=== PATIENT | male | born 1970 | race Caucasian/White ===

== ENCOUNTER 2018-01-28 09:30 | Outpatient (AMBR) | payer MEDICAID, SELFPAY ==
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
--- NOTE | 2017-12-03 09:30 | PT.ODAYNRPT ---
PT Outpatient Daily Note Date of Service: December 03, 2017 Office Procedures PT Procedures PT Date of Service: 11/29/17 OP PT Eval Mod Complex 30 minutes: Yes
--- NOTE | 2017-12-03 09:41 | PTNOTE_ITS ---
PT Outpatient Daily Note Date of Service: December 03, 2017 OP Daily Note Visit Reasons: Gait instability Outpatient Physical Therapy Treatment Date: 12/03/17 Subjective: I fell down this morning before I came in here. Objective: Pls see FS Assessment: patient were given strengthening ex on BUE/BLE. patient has foot drop on RLE with inversion. will benefit for AFO on the R foot with a lateral stirrup to promote DF and eversion of the R foot. Contacted Web Operations Lead re: AFO and as per Richie they will need an MD order. patient were advised to see MD to request MD order for AFO to prevent foot drop that makes a patient a high fall risk. Plan: To continue POC toward goals. Pain Present Currently: No Length of Time (minutes) of Treatment: 30 Minutes Office Procedures PT Procedures PT Date of Service: 11/29/17 OP PT Eval Mod Complex 30 minutes: Yes
--- NOTE | 2017-12-06 09:19 | PT.ODAYNRPT ---
PT Outpatient Daily Note Date of Service: December 06, 2017 OP Daily Note Visit Reasons: gait instability Outpatient Physical Therapy Treatment Date: 12/06/17 Subjective: no new complaints Objective: pls see FS Assessment: patient were given strengthening ex on BUE/BLE , STS activity and standing ex with 3lbs AW on BLE and weighted bar x 5lbs. no complains of pain. patient will see his PCP today, letter were given to request for an AFO. Plan: to continue POC toward goals Pain Present Currently: No Length of Time (minutes) of Treatment: 30 Minutes Office Procedures PT Procedures PT Date of Service: 11/29/17 OP PT Eval Mod Complex 30 minutes: Yes PT Procedures PT Date of Service: 12/03/17 Therapeutic Exercise 30 minutes: Yes
--- NOTE | 2017-12-13 09:53 | PT.ODAYNRPT ---
PT Outpatient Daily Note Date of Service: December 13, 2017 OP Daily Note Visit Reasons: Gait instability, hx of head trauma Outpatient Physical Therapy Treatment Date: 12/13/17 Subjective: no new complains Objective: pls see FS Assessment: orders received from re: AFO on RLE due to R foot drop which cause a high fall risk for the patient. patient did strengthening ex on BUE/BLE due to ms weakness with gait training focusing on hip flexion and knee flexion during obstacle training. patient will benefit from AFO with DF assist and medial stirrup to prevent foot drop and lateral and medial instability to decrease risk of falls due to patient has multiple hx of falls at home. Plan: to continue POC toward goals. Pain Present Currently: No Length of Time (minutes) of Treatment: 30 Minutes Office Procedures PT Procedures PT Date of Service: 12/13/17 Therapeutic Exercise 30 minutes: Yes PT Procedures PT Date of Service: 11/29/17 OP PT Eval Mod Complex 30 minutes: Yes PT Procedures PT Date of Service: 12/03/17 Therapeutic Exercise 30 minutes: Yes PT Procedures PT Date of Service: 12/06/17 Therapeutic Exercise 30 minutes: Yes
--- NOTE | 2017-12-31 09:59 | PT.ODAYNRPT ---
PT Outpatient Daily Note Date of Service: December 31, 2017 OP Daily Note Visit Reasons: LOW BACK PAIN Outpatient Physical Therapy Treatment Date: 12/31/17 Subjective: no new complaints Objective: pls see FS Assessment: patient were given strengthening ex on BLE, kinesiotaping of the R towards DF and eversion. scifit on level 5 to prmote strengthening ex and improve endurance. Plan: to continue POC toward goals. Pain Present Currently: No Length of Time (minutes) of Treatment: 30 Minutes Office Procedures PT Procedures PT Date of Service: 12/13/17 Therapeutic Exercise 30 minutes: Yes PT Procedures PT Date of Service: 11/29/17 OP PT Eval Mod Complex 30 minutes: Yes PT Procedures PT Date of Service: 12/03/17 Therapeutic Exercise 30 minutes: Yes PT Procedures PT Date of Service: 12/06/17 Therapeutic Exercise 30 minutes: Yes PT Procedures PT Date of Service: 12/31/17 Therapeutic Exercise 30 minutes: Yes
--- NOTE | 2018-01-10 09:44 | PT.ODAYNRPT ---
PT Outpatient Daily Note Date of Service: January 10, 2018 OP Daily Note Visit Reasons: LOW BACK PAIN Outpatient Physical Therapy Treatment Date: 01/10/18 Subjective: NO NEW COMPLAINTS Objective: pls see FS Assessment: patient were given strengthening ex on BLE seated and standing, with kinesiotaping on R foot due to foot drop. contacted [facility] today to follow up with AFO and they said they cannot find his account. Resend the referral today to [facility] in [place]. Plan: To continue POC toward goals Office Procedures PT Procedures PT Date of Service: 12/13/17 Therapeutic Exercise 30 minutes: Yes PT Procedures PT Date of Service: 11/29/17 OP PT Eval Mod Complex 30 minutes: Yes PT Procedures PT Date of Service: 12/03/17 Therapeutic Exercise 30 minutes: Yes PT Procedures PT Date of Service: 12/06/17 Therapeutic Exercise 30 minutes: Yes PT Procedures PT Date of Service: 12/31/17 Therapeutic Exercise 30 minutes: Yes
--- NOTE | 2018-01-10 09:47 | PTNOTE_ITS ---
PT Outpatient Daily Note Date of Service: January 10, 2018 OP Daily Note Visit Reasons: LOW BACK PAIN Outpatient Physical Therapy Treatment Date: 01/10/18 Subjective: NO NEW COMPLAINTS Objective: pls see FS Assessment: patient were given strengthening ex on BLE seated and standing, with kinesiotaping on R foot due to foot drop. contacted [facility] today to follow up with AFO and they said they cannot find his account. Resend the referral today to [facility] in [place]. Plan: To continue POC toward goals Office Procedures PT Procedures PT Date of Service: 12/13/17 Therapeutic Exercise 30 minutes: Yes PT Procedures PT Date of Service: 11/29/17 OP PT Eval Mod Complex 30 minutes: Yes PT Procedures PT Date of Service: 12/03/17 Therapeutic Exercise 30 minutes: Yes PT Procedures PT Date of Service: 12/06/17 Therapeutic Exercise 30 minutes: Yes PT Procedures PT Date of Service: 12/31/17 Therapeutic Exercise 30 minutes: Yes
--- NOTE | 2018-01-17 13:23 | PT.ODAYNRPT ---
PT Outpatient Daily Note Date of Service: January 17, 2018 OP Daily Note Visit Reasons: gait instability Outpatient Physical Therapy Treatment Date: 01/17/18 Subjective: py doing well upon visit. pt did have a question about the ordered brace in which i was not aware so I advised pt to ask his Therapist on the following visit. Objective: see flow sheet. Assessment: pt's RLE kept slipping off the pedal from sci-fit but he was able to get back up each time. noted pt's RLE foot drop and just cued him to stake his time with each step to be able to have a bit more control of it. pt was able to complete all reps and sets of the exercises with seated rest breaks. no signs of fatigue nor SOB. added obstacle training with foam pads in the PB in which he was allowed to hold onto the bars for support. at first pt had trouble with abduction in order to not step onto the other foot as he had to step over the pads. after correcting him then he did much better. pt is pleasant to work with and cooperates well. Plan: continue POC per PT. Office Procedures PT Procedures PT Date of Service: 12/13/17 Therapeutic Exercise 30 minutes: Yes PT Procedures PT Date of Service: 01/10/18 Therapeutic Exercise 30 minutes: Yes PT Procedures PT Date of Service: 11/29/17 OP PT Eval Mod Complex 30 minutes: Yes PT Procedures PT Date of Service: 12/03/17 Therapeutic Exercise 30 minutes: Yes PT Procedures PT Date of Service: 12/06/17 Therapeutic Exercise 30 minutes: Yes PT Procedures PT Date of Service: 12/31/17 Therapeutic Exercise 30 minutes: Yes PT Procedures PT Date of Service: 01/17/18 Therapeutic Exercise 30 minutes: Yes
--- NOTE | 2018-01-24 10:13 | PT.ODAYNRPT ---
PT Outpatient Daily Note Date of Service: January 24, 2018 OP Daily Note Visit Reasons: LOW BACK PAIN Subjective: no new complaints Objective: pls see FS Assessment: patient were given strengthening ex on BLE with 5lbs AW and STS with instructions on UE recruitment for push off. Ff-up with [employer] re: the AFO and they said that they called the patient's sister and sent up an appointment for the patient. Plan: to continue POC toward goals. Pain Present Currently: No Length of Time (minutes) of Treatment: 30 Minutes Office Procedures PT Procedures PT Date of Service: 12/13/17 Therapeutic Exercise 30 minutes: Yes PT Procedures PT Date of Service: 01/10/18 Therapeutic Exercise 30 minutes: Yes PT Procedures PT Date of Service: 11/29/17 OP PT Eval Mod Complex 30 minutes: Yes PT Procedures PT Date of Service: 12/03/17 Therapeutic Exercise 30 minutes: Yes PT Procedures PT Date of Service: 12/06/17 Therapeutic Exercise 30 minutes: Yes PT Procedures PT Date of Service: 12/31/17 Therapeutic Exercise 30 minutes: Yes PT Procedures PT Date of Service: 01/17/18 Therapeutic Exercise 30 minutes: Yes
--- NOTE | 2018-01-28 10:07 | PTNOTE_ITS ---
PT Outpatient Daily Note Date of Service: January 28, 2018 OP Daily Note Pediatric or Adult Patient: Adult PT >13 Visit Reasons: Gait instability Outpatient Physical Therapy Treatment Date: 01/28/18 Subjective: no new complaints Objective: pls see FS Assessment: focused on strengthening ex on BLE with 5lbs AW. patient has a schedule on [facility] [facility] for his AFO fitting. Plan: to continue pOC toward goals Pain Present Currently: No Length of Time (minutes) of Treatment: 30 Minutes Office Procedures PT Procedures PT Date of Service: 12/13/17 Therapeutic Exercise 30 minutes: Yes PT Procedures PT Date of Service: 01/10/18 Therapeutic Exercise 30 minutes: Yes PT Procedures PT Date of Service: 01/28/18 Therapeutic Exercise 30 minutes: Yes PT Procedures PT Date of Service: 11/29/17 OP PT Eval Mod Complex 30 minutes: Yes PT Procedures PT Date of Service: 12/03/17 Therapeutic Exercise 30 minutes: Yes PT Procedures PT Date of Service: 12/06/17 Therapeutic Exercise 30 minutes: Yes PT Procedures PT Date of Service: 12/31/17 Therapeutic Exercise 30 minutes: Yes PT Procedures PT Date of Service: 01/17/18 Therapeutic Exercise 30 minutes: Yes
== END 2018-01-28 10:30 | disposition home or self-care (01) ==
PROVIDERS: PCP Family Medicine; Referring Provider Family Medicine; Visit Provider Family Medicine
DX: I10 Essential (primary) hypertension (principal)
CPT/HCPCS: 97110; 97162

== ENCOUNTER 2024-10-08 13:43 | Emergency (ER) | payer MEDICAID, SELFPAY ==
[2024-10-08 14:19] VITALS: BP 109/72; PULSE 74; RESP 18; TEMP 37; O2SAT 98; BMI 30.1
--- NOTE | 2024-10-08 14:20 | XR_ITS ---
Examination: Wrist, left 3 views Technique: Wrist AP, oblique, lateral 3 views Date and time of exam: October 08, 2024 1421 hours INDICATIONS: Patient fell today with injury to the wrist, wrist pain. FINDINGS: Acute comminuted impacted fracture distal radial metaphysis, partly intra-articular No major offset Nondisplaced fracture ulnar styloid tip Carpal bones are intact IMPRESSION: Acute comminuted impacted intra-articular fracture distal radial metaphysis
--- NOTE | 2024-10-08 14:20 | XR_ITS ---
Examination: CT brain head without contrast. 2-D sagittal coronal reconstructions Date and time of exam:October 08, 2024 1444 hours INDICATIONS: Patient fell today with injury to the head, head pain CTDI: vol (mGy):51.1 DLP: (mGycm):1078 Technique: Multiple CT axial sections of the brain have been obtained, 5 mm slice thickness. Contrast has not been administered. 2-D sagittal, coronal reconstructions have been obtained Low dose protocols were performed. One or more of the following dose reduction techniques were used; automated exposure control, adjustment of the mA and/or KV according to patient size, use of iterative reconstruction technique. Findings: No significant ventricular enlargement. Intra-axial or extra-axial hemorrhage density is not seen. No mass effect or midline shift Basal cisterns are not remarkable. Fourth ventricle is midline. Old appearing blowout fracture left inferior orbital rim Again noted left frontal craniotomy defect with plate and extensive encephalomalacia left frontal lobe, lesser extent right frontal lobe, unchanged compared with December 25, 2017, also right frontal tony hole Impression: No interval acute hemorrhage, mass effect or midline shift
--- NOTE | 2024-10-08 14:20 | XR_ITS ---
Examination: CT cervical spine without contrast 2-D sagittal reconstructions 2-D coronal reconstructions 3-D reconstructions. Exam date and time:October 08, 2024 1444 hours INDICATIONS: Patient fell today with injury to the neck, neck pain CTDI:vol (mGy) 9.02 DLP: (mGycm) 209 Technique: Multiple 2 mm axial sections of the cervical spine have been obtained. The coronal and sagittal reconstructions have been obtained. 3-D reconstructions have been obtained. Low dose protocols were performed. One or more of the following dose reduction techniques were used; automated exposure control, adjustment of the mA and/or KV according to patient size, use of iterative reconstruction technique. Findings: Axial sections demonstrate intact base of the skull. C1 exhibit satisfactory relationship to the odontoid. No acute cervical vertebral body fracture seen. Alignment posterior spinous processes satisfactory. Impression: No acute cervical fracture.
--- NOTE | 2024-10-08 14:20 | XR_ITS ---
Examination: Forearm, left, 2 views. Technique: Forearm, AP, lateral 2 views Date and time of exam: October 08, 2024 1421 hours INDICATIONS: Patient fell today with injury to the forearm, forearm pain. FINDINGS: Acute comminuted impacted fracture distal radial metaphysis Fracture ulnar styloid tip No elbow fracture noted no elbow effusion IMPRESSION: Acute comminuted impacted fracture distal radial metaphysis
[2024-10-08] MEDS: ACETAMINOPHEN w/COD 300-30 TABLET 2 TAB PO (14:52)
[2024-10-08] MEDS: IBUPROFEN TAB 400 MG TABLET 800 MG PO (14:53)
--- NOTE | 2024-10-08 16:48 | PC.CC ---
[facility] was consulted regarding services for patient. ASW met with patient face to face and sister Charisma who is at bedside. ASW introduced self, role, and reason fir visit. Patient received [facility] 10 hours a week but they would like more assistance with the patient specifically now that he fractured his wrist. ASW informed patient and family that a home health referral would be sent for PT and nursing services. Patient and sister are agreeable.
--- NOTE | 2024-10-08 16:49 | EDNOTE_ITS ---
ED Fall Injury RME/HPI General Chief Complaint: Fall Stated Complaint: LEFT WRIST PAIN/SWELLING DUE TO FALL, HIT HEAD Time Seen by Provider: 10/08/24 13:55 Arrival date/time: 10/08/24 13:43 RME / HPI RME / HPI Narrative: This section includes all my notes and documentations, including HPI, PE, and ED course.? Cosmo Frances MD HPI: 53-year-old male here to be evaluated after falling in his home a few hours ago. He had a mechanical fall, stumbled over his wheelchair. He didn't due to syncope or near syncope. He landed on the back of his head. No loss of consciousness. No headache or dizziness. He reports severe pain in the left wrist area. No neck pain or back pain. No chest pain or abdominal pain. No pain in other limbs. No other complaints. ROS: All negative except as documented in HPI. Physical Exam: General:? Alert and oriented.? No acute distress when remaining still.?? Eyes:? Conjunctivae and lids clear.? ENT:? No signs of head trauma. Neck:? Supple.? No tenderness. Heart:? RRR.? Lungs:? No respiratory distress.? Good air movement.? No rhonchi, wheezing, rales.?? Chest: No tenderness. Abdomen:? Soft and nontender.?? Skin:? Warm and dry.?? Neuro:? Alert and oriented X 3.??Cranial nerves II to XII grossly normal. No peripheral motor deficits. Musculoskeletal: Remarkable for left wrist and left forearm tenderness. All other major joints and bones are not tender with no limited range of motion. I reviewed all diagnostic test results. My review of the head CT report is no acute findings. My review of the cervical spine CT report is no acute fracture. My interpretation of the left wrist and left forearm x-rays is distal radial fracture. At this point, diagnoses include?fracture of left wrist Treatment here included?ibuprofen and two Tylenol #3 and sugar-tong splint and arm sling. He felt much better. I discussed the case with our orthopedic surgeons (Dr. Julian and Dr. Meier).? About the presentation and exam and diagnostics and treatments here.? And possible need of further care in the hospital.? Recommend outpatient surgery. Based on my best medical judgment, made decision no further evaluation or treatment indicated at this time.? Patient understands and agrees to the discharge instructions customized and printed, see below. Discharge Instructions from Dr. Frances printed for you: 1. Unfortunately, you fractured your left wrist. 2. Until cleared by a doctor taking care of you, keep the splint clean and dry and intact and wear the arm sling. 3. Elevate above the heart level for 3 days is much as possible. 4. Ibuprofen 800 mg every 6-8 hours today and tomorrow to decrease inflammation then as needed. 5. Tylenol codeine for pain. 6. Our ED Laborer [employer] initiated home health care for you, follow all her instructions. 7. You are scheduled to see our orthopedic surgeon (Dr. Meier, see below for address and phone number) at 2 PM on 10/13/24 for further care, including surgery. Hardeep Velasco MD [address] [place] [id number] 8. Seek immediate medical care with intolerable pain, not being able to move your fingers, your fingers turning cold and blue, or with any concerns. Because patient needs both hands to stand and ambulate using a walker, we consulted our ED child care supervisor who initiated home health care services. Cosmo Frances MD Related Data Previous Rx's ?Medication ?Instructions ?Recorded acetaminophen 300 mg-codeine 30 mg 2 tab PO TID PRN pain #20 tabs 10/08/24 tablet ibuprofen 800 mg tablet 800 mg PO Q8H PRN pain #30 tabs 10/08/24 Allergies Allergy/AdvReac Type Severity Reaction Status Date / Time No Known Allergies Allergy Verified 10/08/24 13:46 Review of Systems Review of Systems Systems Reviewed: All systems reviewed, normal except as documented Past Medical History Past Medical History ENDOCRINE: Negative Diabetes Mellitus Type 2 Social History SMOKING STATUS: Former smoker ED Exam Narrative Physical exam: As noted in HPI Course Quality Measures none Orders Category Date Time Status Splint / Immobilizer STAT Care 10/08/24 14:53 Active sling [Splint / Immobilizer] STAT Care 10/08/24 14:54 Active Home Health Referral Routine Cons 10/08/24 16:[address] cervical spine wo con Stat Exams 10/08/24 14:[address] head/brain wo con Stat Exams 10/08/24 14:20 Completed XR forearm LT 2V Stat Exams 10/08/24 14:20 Completed XR wrist comp LT min 3V Stat Exams 10/08/24 14:20 Completed ACETAMINOPHEN w/COD 300-30 [Tylenol w/Cod #3] Med 10/08/24 14:19 Discontinued 2 tab PO X1 ONE Ibuprofen Tab [Motrin Tab] Med 10/08/24 14:19 Discontinued 800 mg PO X1 ONE Vital Signs Vital signs: Vital Signs Temperature 98.6 F 10/08/24 14:19 Pulse Rate 74 10/08/24 14:19 Respiratory Rate 18 10/08/24 14:19 Blood Pressure 109/72 10/08/24 14:19 Pulse Oximetry (%) 98 10/08/24 14:19 Oxygen Delivery Method Room Air 10/08/24 14:19 Pulse ox is 98% on room air which is adequate. 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 How is presenting disease/condition affected by chronic disease/condition?: exacerbated by Evaluation data The following diagnostics were reviewed and interpreted by me:: radiology exam(s) Lab and/or radiology exams considered but not ordered:: None Interpretation Summary: Left distal radial fracture Medications / Prescriptions Medications or Prescriptions considered but not ordered:: None Medication administrations:: Medication Administration History Discontinued Medications Acetaminophen/Codeine Phosphate (Acetaminophen W/Cod 300-30 Tablet) 2 tab PO X1 ONE Stop: 10/08/24 14:20 Last Admin: 10/08/24 14:52 Dose: 2 tab Documented By: Ibuprofen (Ibuprofen Tab 400 Mg Tablet) 800 mg PO X1 ONE Stop: 10/08/24 14:20 Last Admin: 10/08/24 14:53 Dose: 800 mg Documented By: Patient was given two Tylenol #3 and ibuprofen 800 mg. Consultations Consultation(s) initiated? (list below): Yes Consultation #1 (Physician, Specialty, Details): I spoke with our ortho Dr. Julian. Discussed patients PMHx, HPI, ED course, exam findings, labs, and radiology results. Advised patient follow up with ortho Dr. Meier on an outpatient basis. Diagnosis Fall Differential Diagnosis: fracture of wrist, concussion with loss of consciousness, concussion without loss of consciousness and other (Neck fracture) Most likely diagnosis given after review of the tests above:: Fracture of left wrist Admission Indicated Admission indicated?: not indicated Explain why admission is indicated or not indicated:: Our orthopedic surgeons recommended outpatient surgery. Admission Request Was there a request for admission?: No Disposition Plan Disposition Plan: Discharge Discharge Attestation Discharge Attestation: The patient and all family members were given an opportunity to ask questions an d understood the discharge instructions. Discharge instructions specifically effects, indications for sooner follow up or return to the emergency department, and the expected course of current diagnosis. Patient condition: Stable Discharge Plan Plan Patient Disposition: HOME (Self Care) Prescriptions/Referrals Prescriptions/Med Rec: New ibuprofen 800 mg tablet 800 mg PO Q8H PRN (Reason: pain) Qty: 30 0RF acetaminophen-codeine 300-30 mg tablet 2 tab PO TID MDD 6 PRN (Reason: pain) Qty: 20 0RF Referrals: Juan Alberto([facility])Jorge NP [Primary Care Provider] - In 1 week Moises Meier MD [Physician] - In 1 week Problem List Clinical Impression: Fracture of left wrist Patient/Caregiver Discharge Instructions Discharge Activity: activity as tolerated Education Materials: ED Fracture, Wrist, General Additional Instructions: Discharge Instructions from Dr. Frances printed for you: 1. Unfortunately, you fractured your left wrist. 2. Until cleared by a doctor taking care of you, keep the splint clean and dry and intact and wear the arm sling. 3. Elevate above the heart level for 3 days is much as possible. 4. Ibuprofen 800 mg every 6-8 hours today and tomorrow to decrease inflammation then as needed. 5. Tylenol codeine for pain. 6. Our ED Laborer [employer] initiated home health care for you, follow all her instructions. 7. You are scheduled to see our orthopedic surgeon (Dr. Meier, see below for address and phone number) at 2 PM on 10/13/24 for further care, including surgery. 8. Seek immediate medical care with intolerable pain, not being able to move your fingers, your fingers turning cold and blue, or with any concerns. Hardeep Velasco MD [address] , [place] [address] Print Language: Tunisian Stand Alone Forms: Maria Teresa Award Info., Patient Portal Info Letter
--- NOTE | 2024-10-08 17:41 | PC.CC ---
ASW sent referral for home health via [employer] for patient. ASW to follow-up when accepting company accepts patient.
== END 2024-10-08 17:34 | disposition home or self-care (01) ==
PROVIDERS: Emergency Provider Emergency Medicine; PCP Nurse Practitioner Family
DX: S52.572A Other intraarticular fracture of lower end of left radius, initial encounter for closed fracture (principal); S19.9XXA Unspecified injury of neck, initial encounter; S09.90XA Unspecified injury of head, initial encounter; W18.09XA Striking against other object with subsequent fall, initial encounter; Y92.009 Unspecified place in unspecified non-institutional (private) residence as the place of occurrence of the external cause
CPT/HCPCS: 29125; 70450; 72125; 73090; 73110; 99284; A4565; A9270

== ENCOUNTER 2024-10-10 06:38 | Inpatient (IN) | payer MEDICAID, SELFPAY ==
[2024-10-10] VITALS (18 sets, daily range): BP systolic 108–133; BP diastolic 69–89; PULSE 63–107; RESP 11–23; TEMP 35.9–36.8; O2SAT 93–100
--- NOTE | 2024-10-10 06:53 | PD.EDHAND ---
Upper Extremity Injury RME/HPI General Chief Complaint: Hand/Wrist Problems Stated Complaint: LEFT WRIST FRACTURE, SEND BY Time Seen by Provider: 10/10/24 06:40 Arrival date/time: 10/10/24 06:38 53-year-old male with history of TBI and seizure disorder currently conserved and here with sister presents emergency department today with complaints of left wrist pain patient was seen 2 days ago diagnosed with wrist fracture patient has a splint in place Limitations: no limitations Related Data Previous Rx's ?Medication ?Instructions ?Recorded acetaminophen 300 mg-codeine 30 mg 2 tab PO TID PRN pain #20 tabs 10/08/24 tablet ibuprofen 800 mg tablet 800 mg PO Q8H PRN pain #30 tabs 10/08/24 Allergies Allergy/AdvReac Type Severity Reaction Status Date / Time No Known Allergies Allergy Verified 10/08/24 13:46 Review of Systems Review of Systems Systems Reviewed: All systems reviewed, normal except as documented Constitutional Constitutional: Reports system reviewed and no additional complaints, except as documented, Denies fever(s) and Denies headache(s) Eyes Eyes: Reports system reviewed and no additional complaints, except as documented and Denies blurry vision ENT Ears, Nose, Mouth, and Throat: Reports system reviewed and no additional complaints, except as documented, Denies headache(s), Denies nasal congestion and Denies nasal discharge Cardiovascular Cardiovascular: Reports system reviewed and no additional complaints, except as documented, Denies chest pain and Denies dyspnea Respiratory Respiratory: Reports system reviewed and no additional complaints, except as documented, Denies chest congestion, Denies cough and Denies dyspnea Gastrointestinal Gastrointestinal: Reports system reviewed and no additional complaints, except as documented and Denies abdominal pain Musculoskeletal Musculoskeletal: Reports system reviewed and no additional complaints, except as documented, Reports arthralgias, Reports deformity, Reports joint swelling, Denies numbness, Reports stiffness and Denies tingling Integumentary/Breasts Skin/Breast: Reports system reviewed and no additional complaints, except as documented and Denies rash Neurologic Neurologic: Reports system reviewed and no additional complaints, except as documented, Reports as per HPI, Denies headache(s), Denies numbness and Denies tingling Past Medical History Past Medical History ENDOCRINE: Negative Diabetes Mellitus Type 2 Social History SMOKING STATUS: Never smoker ED Exam General Limitations: Present no limitations General appearance: Present alert and in no apparent distress Head Head exam: Present atraumatic Eye Eye exam: Present normal appearance, PERRL and EOMI ENT ENT exam: Present normal exam, normal oropharynx and mucous membranes moist Neck Neck exam: Present normal inspection, full ROM and trachea midline Chest Chest inspection: Present normal inspection and symmetric chest wall rise Respiratory Respiratory exam: Present normal lung sounds bilaterally Cardiovascular Cardiovascular exam: Present regular rate, normal rhythm and normal heart sounds Abdominal Exam Abdominal exam: Present soft and normal bowel sounds Extremities Exam Extremities exam: Present normal inspection and full ROM Back Exam Back exam: Present normal inspection and full ROM Neurological Exam Neurological exam: Present alert, oriented X3 and CN II-XII intact Psychiatric Psychiatric exam: Present normal affect and normal mood Skin Skin exam: Present warm, dry, intact and normal color Course Quality Measures none Orders Category Date Time Status COVID-19 Screening Questionnaire NOW Care 10/10/24 06:52 Active Decision to Admit X1 Care 10/10/24 06:52 Active EKG (ED ONLY) *Do not use* NOW Care 10/10/24 07:25 Completed Insert IV NOW Care 10/10/24 06:52 Active Consult to Orthopedic Stat Cons 10/10/24 06:52 Ordered EKG (ED Only) Stat Exams 10/10/24 07:24 Ordered XR chest 1V portable Stat Exams 10/10/24 07:24 Taken XR fluoroscopy up to 1 Hour Routine Exams 10/10/24 10:00 Ordered CBC Stat Lab 10/10/24 07:38 Completed Comprehensive Metabolic Panel Stat Lab 10/10/24 07:38 Completed Partial Thromboplastin Time Stat Lab 10/10/24 07:38 Received Prothrombin Time with INR Stat Lab 10/10/24 07:38 Received Morphine Inj Med 10/10/24 06:51 Discontinued 2 mg IVP X1 ONE Ondansetron Inj [Zofran Inj] Med 10/10/24 06:51 Discontinued 4 mg IV X1 ONE Vital Signs Vital signs: Vital Signs Temperature 98.3 F 10/10/24 06:44 Pulse Rate 88 10/10/24 06:44 Respiratory Rate 20 10/10/24 06:44 Blood Pressure 133/89 H 10/10/24 06:44 Pulse Oximetry (%) 96 10/10/24 06:44 Oxygen Delivery Method Room Air 10/10/24 06:44 o2 sat 96% r/a wnl Procedures -ED EKG Interpretation #1: Date of EK10/10/24 Time of EK:44 Rate: 72 Interpretation: Interpreted by me EKG Impression: Normal sinus rhythm, No acute ST-T changes, No ectopy, No ischemic changes, Normal QRS and Normal intervals Extremity Injury MDM Narrative MDM Narrative:: 53-year-old male with history of TBI and seizure disorder currently conserved and here with sister presents emergency department today with complaints of left wrist pain patient was seen 2 days ago diagnosed with wrist fracture patient has a splint in place Per the sister patient was instructed to come here by Dr. Read's office for surgery today I reviewed the patient's images patient does have significant fracture of the wrist Consultation: I spoke with Dr. Read who states he will take the patient to surgery Patient given pain medications here patient admitted in no distress Patient data External records reviewed:: [facility] previous records Clinical information provided by:: patient Social determinants that could affect healthcare access:: none (TBI) Patient has the following chronic illnesses:: TBI, seizure disorder How is presenting disease/condition affected by chronic disease/condition?: exacerbated by Evaluation data The following diagnostics were reviewed and interpreted by me:: lab results Lab and/or radiology exams considered but not ordered:: Labs obtained Interpretation Summary: Reviewed by me Medications / Prescriptions Medications or Prescriptions considered but not ordered:: Given Medication administrations:: Medication Administration History Discontinued Medications Morphine Sulfate (Morphine Sulf Inj 10 Mg/Ml Vial) 2 mg IVP X1 ONE Stop: 10/10/24 06:52 Last Admin: 10/10/24 08:38 Dose: 2 mg Documented By: Ondansetron HCl (Ondansetron Inj 2 Mg/Ml Inj 2 Ml) 4 mg IV X1 ONE; Protocol Stop: 10/10/24 06:52 Last Admin: 10/10/24 08:38 Dose: 4 mg Documented By: Given Consultations Consultation(s) initiated? (list below): Yes Consultation #1 (Physician, Specialty, Details): Dr Meier Diagnosis Upper Extremity Injury Differential Diagnosis: sprain and strain of wrist, fracture of wrist and other (Fracture of wrist) Most likely diagnosis given after review of the tests above:: Wrist fracture Admission Indicated Admission indicated?: indicated Admission Request Was there a request for admission?: Yes Admission Attestation Admission request attestation: Discussed case with [] from Hospitalist service regarding admission. Discussed patients ED course, exam findings, labs, and radiology results. The Hospitalist [agrees,declines] to accept the patient for admission. Disposition Plan Disposition Plan: Admit Discharge Plan Plan Patient Disposition: Admit Acute Care w/in Hospital Disposition Comment: Stable Prescriptions/Referrals Prescriptions/Med Rec: No Action ibuprofen 800 mg tablet 800 mg PO Q8H PRN (Reason: pain) Qty: 30 0RF acetaminophen-codeine 300-30 mg tablet 2 tab PO TID MDD 6 PRN (Reason: pain) Qty: 20 0RF Referrals: Juan Alberto([facility]),KAMILLE Patel [Primary Care Provider] - In 1 week Problem List Clinical Impression: Fracture of left wrist Patient/Caregiver Discharge Instructions Print Language: Korean Stand Alone Forms: Maria Teresa Award Info., Patient Portal Info Letter PA/[employer] Supervising Physician PA/FRUIT [employer] Supervising Physician: Dr. Frances
--- NOTE | 2024-10-10 07:24 | XR_ITS ---
Examination: AP chest single view Technique one AP portable sitting chest single view Exam date and time: October 10, 2024 0816 hours Comparison December 18, 2009 INDICATIONS: Diagnosis seizure disorder FINDINGS: Normal heart size Suspicious for pneumonia left base obscuring detail medial portion left hemidiaphragm Right lung clear Moderate osteopenia IMPRESSION: Recommend lateral chest view follow-up to exclude pneumonia left base
[2024-10-10 07:50] LABS: Basophils % (Auto) 0 % (0-2.5); Eosinophils # (Auto) 0.1 Thou/mm3 (0.0-0.5); Eosinophils % (Auto) 1 % (0-10); Hematocrit 42.5 % (41.0-53.0); Hemoglobin 14.8 g/dL (13.5-16.0); Immature Granulocytes % (Auto) 0 % (0-0); Immature Granulocytes Auto 0.03 Thou/mm3 (0.00-0.00); Lymphocytes # (Auto) 1.4 Thou/mm3 (1.0-4.8); Lymphocytes % (Auto) 15 % (10-50); Mean Corpuscular HGB Conc 34.8 g/dl (31.0-37.0); Mean Corpuscular Hemoglobin 33.2 pg (25.0-35.0); Mean Corpuscular Volume 95 fL (80-100); Monocytes # (Auto) 0.7 Thou/mm3 (0.0-0.8); Monocytes % (Auto) 7 % (0-12); Neutrophils # (Auto) 7.2 Thou/mm3 (1.8-7.7); Neutrophils % (Auto) 76 % (37-80); Nucleated Red Blood Cell % 0 /100 WBC (0); Platelet Count 294 Thou/mm3 (140-440); RDW Standard Deviation 45.1 fL (35.1-43.9); Red Blood Count 4.46 Miln/mm3 (4.50-5.90); White Blood Count 9.5 Thou/mm3 (3.8-10.6)
[2024-10-10 08:12] LABS: Alanine Aminotransferase 95 U/L (10-49); Albumin, Serum 4.3 gm/dL (3.5-5.0); Albumin/Globulin Ratio 1.7 (1.2-2.2); Alkaline Phosphatase 105 U/L (46-116); Anion Gap 4 (7-16); Aspartate Amino Transferase 52 U/L (0-34); BUN/Creatinine Ratio 14 Ratio (12-20); Bilirubin,Total 0.4 mg/dL (0.3-1.2); Blood Urea Nitrogen 11 mg/dL (9-23); Calcium 9.5 mg/dL (8.3-10.6); Calcium (Corrected) 9.5 mg/dL (8.5-10.1); Carbon Dioxide 30.5 mMol/L (20.0-31.0); Chloride 103 mMol/L (98-107); Creatinine (Component) 0.8 mg/dL (0.6-1.3); Globulin 2.6 gm/dL (2.3-3.5); Glucose 86 mg/dL (74-106); Osmolality,Calculated 272 (275-295); Potassium 4.8 mMol/L (3.4-5.1); Sodium 137 mMol/L (136-145); Total Protein 6.9 gm/dL (5.7-8.2); eGFR > 60 See Note
[2024-10-10] MEDS: MORPHINE SULF INJ 10 MG/ML VIAL 2 MG IVP (08:38)
[2024-10-10] MEDS: ONDANSETRON INJ 2 MG/ML INJ 2 ML 4 MG IV ×2 (08:38→11:28)
[2024-10-10 08:59] LABS: Partial Thromboplastin Time 29.8 Seconds (22.0-36.0); Prothrombin Time 11.3 Seconds (9.0-12.2)
--- NOTE | 2024-10-10 10:00 | XR_ITS ---
Examination: AP lateral left wrist 2 views Fluoroscopy Exam date and time: October 10, 2024 1701 hours INDICATIONS: Acute fractures distal radial metaphysis October 08, 2024, operative reduction internal fixation radius fracture today TECHNIQUE AND FINDINGS: Operative reduction internal fixation fracture distal radial metaphysis with satisfactory alignment Orthopedic hardware satisfactory position Fluoroscopy 50 seconds radiation dose 1.38 milligray 2 spot fluoroscopic wrist films IMPRESSION: Operative reduction internal fixation fracture distal radial metaphysis with satisfactory alignment
[2024-10-10] MEDS: MORPHINE SULF INJ 10 MG/ML VIAL 4 MG IVP (11:28)
--- NOTE | 2024-10-10 12:27 | PC.CC ---
Patient is a 53 year-old who presents to the hospital for left wrist fracture. Arcelia MOE made dege-to-aefn contact with patient. ASW introduced self, role, and reason for visit. Patient appeared alert and oriented to self, location, and situation. Patient was pleasant and engaged in initial assessment. Patient's sister Charisma Marcelino is at bedside and is his [facility] Conservator. Patient lives with his sister, Charisma who provides support to the patient. The patient has an [facility] caregiver who is his nephew Ariel. Patient needs a walker to ambulate; however, his sister reports he has been unstable using the walker and is concerned. Patient needs assistance in completing his ADLs. [facility] with Jorge [facility] Upon discharge patient would like to go to a [facility] facility and sister who has conservatorship is in agreement. administrative services manager to follow-up with any discharge needs.
--- NOTE | 2024-10-10 16:46 | SUR.PHASEI ---
1646: pt received [place] via [facility]. received report from MATTEO Mancia and . pt sleepy at this time. no s/s of resp. distress or discomfort. dressing to left wrist clean, dry and intact. sling arm in place.
--- NOTE | 2024-10-10 16:53 | XR_ITS ---
Examination: Left wrist 2 views Technique one AP lateral left wrist 2 views Exam date and time: October 10, 2024 1703 hours Comparison October 08, 2024 INDICATIONS: Postop comminuted fracture distal radial metaphysis, acute fracture distal radius October 08, 2024 FINDINGS: Postop reduction internal fixation fracture distal radial metaphysis Satisfactory alignment Orthopedic hardware satisfactory position IMPRESSION: Postop reduction internal fixation fracture distal radial metaphysis with satisfactory alignment
--- NOTE | 2024-10-10 17:00 | SUR.PHASEI ---
1700: X-ray staff completed x-ray at this time.
--- NOTE | 2024-10-10 17:06 | PD.SUROPNT ---
Date of Procedure 10/10/24 Pre Op Diagnosis Displaced impacted angulated fracture of the left distal radius Post Op Diagnosis Same Procedure Open reduction internal fixation with 5 hole horizontal and 5 hole vertical interlocking plate. Synthes implant. Findings Refer dictation Procedure Description Patient was given general anesthesia. Once satisfactory anesthesia achieved a tourniquet was placed on left upper arm. Following that part was thoroughly prepped and draped. After using Esmarch the tourniquet pressure was raised to 250 mmHg NS antibiotics was given at the time of anesthesia A skin incision was made from the wrist crease extending proximally for about 3 to 4 inches. Deeper dissection was carried out. A plane was developed between the flexor carpi radialis and brachioradialis muscle. The median nerve was protected on the medial side and radial nerve and artery was protected on the lateral side The pronator quadratus muscle was encountered which was reflected The fracture was manipulated. With the help of Thornton the soft tissue invaginated between the fracture fragment was removed Following that a 5 hole plate was mounted over the volar aspect. Patient was checked under C arm and found to be extremely good. Following that K wire was passed to hold the plate in place. Another drill hole was made to put appropriate side cortical screw on the shaft. At the distal end 2 cortical screws were placed and while tightening volar tilt was maintained. 1 more screw was placed on the vertical limb. Following that 3 interlocking screw was placed on the distal end and repeatedly checked under C arm in both AP and lateral. Following that 2 more locking screw was placed in the proximal end. Wound was irrigated with antibiotic solution every 4 to 5 minutes At the end of the procedure the fracture was very well reduced and volar tilt was maintained Closure was done with the help of 2-0 Vicryl in an interrupted fashion. Skin was closed with marquita To cleaning the wound with hydrogen peroxide solution a sterile dressing was applied. Short arm splint was applied and tourniquet pressure was released Patient tolerated procedure well. Estimated blood loss 5 mL. Rogness in this case is fair. Anesthesia GETA Pathology / specimen None Estimated Blood Loss 5 Surgeon Moises Meier MD Surgical Staff Operation Date: 10/10/24 10:15 Case Staff Anesthesiologist: Saleem Berry RNglass cut off tender: Brooke Patel
--- NOTE | 2024-10-10 17:45 | SUR.PHASEII ---
pt able to open eyes and talk to sister. offered water at this time but refused.
--- NOTE | 2024-10-10 18:08 | SUR.PHASEI ---
1808: sister in the bedside. pt able answer when ask questions.
--- NOTE | 2024-10-10 18:41 | ESHP_ITS ---
RE: CICI RATLIFF : 1970 DATE OF ADMISSION: 10/10/2024 I was contacted by emergency room doctor on 10/10/2024 for Mr. Ratliff. HISTORY OF PRESENT ILLNESS: As per history available, the patient fell down on 10/08/2024 at home. The patient has had a brain injury in the past. The patient uses wheelchair. As per the patient and the family, his leg got entangled in the wheelchair and he fell down. This injury happened on or around 10/08/2024. Subsequent to that, the patient was discharged to home from ER. However, on 10/10/2024, the patient had severe pain and therefore, the patient came again. I saw him in the emergency room and it was needed to do surgical procedure. The patient also has a history of seizures. However, he did not fall down because of the seizures or unconsciousness and it was an accidental fall. PAST MEDICAL HISTORY: The patient has a history of seizures. No history of diabetes mellitus, high blood pressure, asthma. PAST SURGICAL HISTORY: Possible brain surgery. PHYSICAL EXAMINATION: GENERAL: The patient has difficulty in communication. VITAL SIGNS: Pulse 88 per minute, blood pressure 130/76. NECK: Soft, supple. No masses felt. Trachea centrally placed. CARDIOVASCULAR SYSTEM: First second and hearts are normal. No murmur heard. RESPIRATORY SYSTEM: Bilateral vesicular breath sounds. EXTREMITIES: Left wrist examination revealed swelling and deformity. X-ray revealed displaced impacted fracture. ASSESSMENT AND PLAN: The patient and the sister was advised surgical fixation with plate and screws. Detailed discussion took place. Risk of anesthesia was explained and that includes, but not limited to reaction to anesthetic agents, cardiac arrest, rarely it might be fatal. Risk with operation includes infection and if that happens, the patient may need further surgical procedure. Other risks include delayed healing, wound assessment, etc. Sometimes there is a risk of stiffness. No guarantees given regarding functional outcome. Detailed discussion took place. The patient's sister who has power of sports attorney wants to proceed with surgery. Hand surgery is booked for today, which is 10/10/2024. All lab work done. DT: 16:58:03 TT: 18:19:00 Ref: [id number] - TID: [id number]
--- NOTE | 2024-10-10 18:43 | SUR.PHASEII ---
able to drink soda without any issues.
--- NOTE | 2024-10-10 19:09 | SUR.PHASEII ---
MD ordered condom catheter, pt refused. patient stated he can use urinal if needed to urinate. Called , he ordered to cancel the order.
--- NOTE | 2024-10-10 19:35 | PD.ANESPROG ---
Documentation for date of: 10/10/24 ANESTHESIA NOTE: Patient had GETA and L supraclavicular nerve block for L radius ORIF earlier today. Pre-op, I saw him with his sister, who is his conservator. He was alert and calm in bed, NAD, R distal UE in cast. He has h/o TBI c/b L blindness and R reduced vision and gait instability and uses walker and also h/o seizure d/o. He did well intra-op and has been in PACU post op doing well, alert, calm, NAD, VSS, sister at bedside. Saleem Berry MD Anesthesia Progress Note Progress Note Most recent Vital Signs: Last Vital Signs Temp 97.5 F 10/10/24 18:15 Pulse 94 10/10/24 18:45 Resp 23 H 10/10/24 18:45 BP 133/69 H 10/10/24 18:45 Pulse Ox 95 10/10/24 18:45 O2 Del Method Room Air 10/10/24 09:00 O2 Flow Rate 4 10/10/24 17:45
--- NOTE | 2024-10-10 19:37 | SUR.PHASEII ---
report given to MATTEO Jewell at this time.
--- NOTE | 2024-10-10 19:37 | SUR.PHASEII ---
Report given to MATTEO Mendieta at this time.
--- NOTE | 2024-10-10 19:55 | SUR.PHASEII ---
1954: pt transferred to room 372. pt alert and oriented x3. denies any pain or discomfort. no s/s of resp distress or discomfort. dressing to left arm with arm sling clean, dry and intact. circulation, sensation and movement intact. able to wiggle left fingers. cap refill > 2 seconds. tolerated clear liquid diet. sister accompanied patient during transfer. called and informed Dr. Read to update for assigned room to patient.
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
[2024-10-10] MEDS: PHENYTOIN 100 MG CAPSR PO (22:55)
[2024-10-11] VITALS: BP 113/70; PULSE 100; RESP 18; TEMP 36.1; O2SAT 92
[2024-10-11 04:00] VITALS: BP 112/79; PULSE 99; RESP 17; TEMP 36.1; O2SAT 95
[2024-10-11 07:37] VITALS: BP 116/75; PULSE 106; RESP 18; TEMP 36.1; O2SAT 95
[2024-10-11] MEDS: PHENYTOIN 100 MG CAPSR PO ×2 (08:40→20:30)
[2024-10-11] MEDS: HYDROcodone/APAP 5/325 TABLET 1 TAB PO (10:16)
[2024-10-11 10:23] LABS: Basophils % (Auto) 0 % (0-2.5); Eosinophils # (Auto) 0.1 Thou/mm3 (0.0-0.5); Eosinophils % (Auto) 0 % (0-10); Hematocrit 42.3 % (41.0-53.0); Hemoglobin 14.4 g/dL (13.5-16.0); Immature Granulocytes % (Auto) 0 % (0-0); Immature Granulocytes Auto 0.05 Thou/mm3 (0.00-0.00); Lymphocytes # (Auto) 1.6 Thou/mm3 (1.0-4.8); Lymphocytes % (Auto) 12 % (10-50); Mean Corpuscular Hemoglobin 32.4 pg (25.0-35.0); Mean Corpuscular Volume 95 fL (80-100); Monocytes # (Auto) 1.1 Thou/mm3 (0.0-0.8); Monocytes % (Auto) 9 % (0-12); Neutrophils # (Auto) 10.3 Thou/mm3 (1.8-7.7); Neutrophils % (Auto) 79 % (37-80); Nucleated Red Blood Cell % 0 /100 WBC (0); Platelet Count 313 Thou/mm3 (140-440); RDW Standard Deviation 42.8 fL (35.1-43.9); Red Blood Count 4.44 Miln/mm3 (4.50-5.90); White Blood Count 13.1 Thou/mm3 (3.8-10.6)
[2024-10-11 10:38] LABS: Albumin, Serum 4.2 gm/dL (3.5-5.0); Anion Gap 6 (7-16); BUN/Creatinine Ratio 15 Ratio (12-20); Blood Urea Nitrogen 12 mg/dL (9-23); Calcium 9.4 mg/dL (8.3-10.6); Calcium (Corrected) 9.4 mg/dL (8.5-10.1); Carbon Dioxide 28.5 mMol/L (20.0-31.0); Chloride 99 mMol/L (98-107); Creatinine (Component) 0.8 mg/dL (0.6-1.3); Glucose 114 mg/dL (74-106); Osmolality,Calculated 267 (275-295); Phosphorous 2.6 mg/dL (2.4-5.1); Potassium 4.3 mMol/L (3.4-5.1); Sodium 133 mMol/L (136-145); eGFR > 60 See Note
[2024-10-11 12:00] VITALS: BP 116/71; PULSE 94; RESP 18; TEMP 36.2; O2SAT 95
--- NOTE | 2024-10-11 12:38 | PD.RESPRO ---
Documentation for date of: 10/11/24 Subjective Subjective Interval history: Overnight events, labs reviewed. The patient examined this a.m. at bedside. The patient has no active complaints. Seizure precautions in place, he is able to respond, he is complaining of surgical dressing on the left arm in the sling across his collar being too tight, per RN she reached out to orthopedic surgeon and he is okay with it. Exam Vital Signs Temp Pulse Resp BP Pulse Ox O2 Del Method O2 Flow Rate 97.1 F 94 18 116/71 95 Room Air 4 10/11/24 12:00 10/11/24 12:00 10/11/24 12:10/11/24 12:10/11/24 12:10/11/24 12:10/10/24 17:45 Narrative Exam General: AOx3, cooperative. Seizure precautions in place, noted surgical dressing on left upper extremity and sling across her collar. Skin: Intact, no cyanosis or edema noted. Scar on the forehead. HEENT: Atraumatic/normocephalic, JOHN, neck supple Heart: RRR, S1 and S2 without clicks or murmurs Lungs: Clear on auscultation bilaterally, no difficulty breathing Abdomen: Soft, nontender. Bowel sounds present . Vascular: Peripheral pulses palpable Neuro: No focal neurological deficits noted. Noted some tremor on the right hand, patient is able to lift his left hand and wiggle his fingers. Objective Labs 10/11/24 09:39 10/11/24 09:39 Labs: Laboratory Results - last 24 hr 10/11/24 09:39 WBC 13.1 H RBC 4.44 L Hgb 14.4 Hct 42.3 MCV 95 MCH 32.4 MCHC 34.0 RDW Std Deviation 42.8 Plt Count 313 Neut % (Auto) 79 Lymph % (Auto) 12 [place] % (Auto) 9 Eos % (Auto) 0 Baso % (Auto) 0 Neut # (Auto) 10.3 H Lymph # (Auto) 1.6 [place] # (Auto) 1.1 H Eos # (Auto) 0.1 Baso # (Auto) 0.0 Immature Gran # (Auto) 0.05 H Absolute Nucleated RBC 0.00 Immature Gran % 0 Nucleated RBC % 0 Sodium 133 L Potassium 4.3 D Chloride 99 Carbon Dioxide 28.5 Anion Gap 6 L BUN 12 Creatinine 0.8 Estim Creat Clear Calc Not Performed. eGFR > 60 BUN/Creatinine Ratio 15 Glucose 114 H Calculated Osmolality 267 L Calcium 9.4 Corrected Calcium 9.4 Phosphorus 2.6 Albumin 4.2 Quality Measures Quality Measures none Assessment & Plan Assessment Current Active Medications: Generic Name Dose Route Start Last Admin Trade Name Freq PRN Reason Stop Dose Admin Hydrocodone Bitart/Acetaminophen 1 tab 10/10/24 21:13 10/11/24 10:16 Hydrocodone/Apap 5/325 Tablet PO 10/15/24 21:12 1 tab Q6HR PRN Administration PAIN Meclizine HCl 25 mg 10/11/24 00:31 Meclizine Hcl 25 Mg Tablet PO 11/09/24 21:40 QDAY PRN DIZZINESS Phenytoin 100 mg 10/10/24 21:45 10/11/24 08:40 Phenytoin 100 Mg Capsr PO 11/09/24 21:44 100 mg BID RAD Administration Pravastatin Sodium 40 mg 10/11/24 21:00 Pravastatin Sodium 10 Mg Tablet PO 11/10/24 20:59 HS RAD Plan 53-year-old male with past medical history of traumatic brain injury status post cranioplasty, history of seizures, hypercholesterolemia, was admitted due to left wrist fracture status post mechanical fall, needed surgical evaluation, status post ORIF postop day 1. Hospitalist team was consulted for chronic condition management and medication reconciliation. #Left wrist fracture status post ORIF Status post ORIF postop day 1 - Pain management as needed - Ortho is on board recommendations appreciated - PT eval is ordered #Traumatic brain injury - Status post cranioplasty #History of seizure - Reconcile home phenytoin #History of hypercholesterolemia - Reconcile home statin Disposition: Medsurge DVT prophylaxis: SCDs GI prophylaxis: Not indicated Diet: Clear liquid Lines: PIV CODE STATUS: Full code Thank you very much, Dr. Meier for consulting internal medicine team. We are delighted to be a part of [[facility]. Patient care discussed with attending Dr. Calista Ghosh PGY2 Attending Provider Attestation/Addendum I reviewed labs, imaging, EKG, home medications and prior available records. Face to face evaluation was performed by me. I have personally examined the patient and discussed assessment and plan with the IM team. I reviewed the resident note and agree with the plan with exceptions as below. Left wrist fracture status post ORIF History of TBI status post craniotomy Seizure disorder Hyperlipidemia Continue current pain management PT evaluation Continue home phenytoin Seizure precautions
--- NOTE | 2024-10-11 12:41 | PC.SS ---
SS was informed by bedside nurseLucy Dr. is agreeable for pt to go to SNF at dc due to family not able to care for him at home.
--- NOTE | 2024-10-11 12:58 | PC.SS ---
SS met with patient regarding his d/c plan. Pt is alert and understand when using simple words. Pt was admitted for Fracture. Pt states he fall at home. Pt confirmed demographic and contact information is correct on facesheet. Pt resides alone but family resides on the same property. Pt ambulates using 2 wheel walker. Pt is ok with all ADLs. Pt named his sister, Fawn Kimble medical decision maker if he is unable. Patient?s choice is to go to SNF upon d/c. Pt states not diabetic and is not on dialysis. SS also spoke to patient's sister, Charisma who is requesting pt go to SNF and her choice is [facility]. D/C plan: SNF and [facility] is preferred Next of Kin: Charisma Marcelino, sister, phone# [phone] PCP: Dr. Jorge Saucedo at [facility] in [place] Address: Correct on facesheet
[2024-10-11 16:00] VITALS: BP 124/78; PULSE 88; RESP 18; TEMP 36.2; O2SAT 95
[2024-10-11 20:00] VITALS: BP 126/78; PULSE 89; RESP 19; TEMP 36.4; O2SAT 93
[2024-10-11] MEDS: PRAVASTATIN SODIUM 10 MG TABLET 40 MG PO (20:30)
[2024-10-12] VITALS: BP 116/73; PULSE 90; RESP 17; TEMP 37.2; O2SAT 93
[2024-10-12 04:00] VITALS: BP 119/80; PULSE 80; RESP 19; TEMP 37.1; O2SAT 93
[2024-10-12 08:00] VITALS: BP 119/91; PULSE 99; RESP 17; TEMP 36.9; O2SAT 95
[2024-10-12] MEDS: PHENYTOIN 100 MG CAPSR PO ×2 (09:39→20:59)
[2024-10-12 12:00] VITALS: BP 112/83; PULSE 96; RESP 18; TEMP 37; O2SAT 92
--- NOTE | 2024-10-12 15:22 | PD.RESPRO ---
Documentation for date of: 10/12/24 Subjective Subjective Interval history: 10/12: No acute overnight evens. Pt is seen and examined at bedside, pt is complaining of pain in the wrist. no surgical complications. Exam Vital Signs Temp Pulse Resp BP Pulse Ox O2 Del Method O2 Flow Rate 98.6 F 96 18 112/83 92 L Room Air 4 10/12/24 12:00 10/12/24 12:00 10/12/24 12:00 10/12/24 12:00 10/12/24 12:00 10/12/24 12:00 10/10/24 17:45 Narrative Exam General: AOx3, cooperative. Seizure precautions in place, noted surgical dressing on left upper extremity and sling across her collar. Skin: Intact, no cyanosis or edema noted. Scar on the forehead. HEENT: Atraumatic/normocephalic, JOHN, neck supple Heart: RRR, S1 and S2 without clicks or murmurs Lungs: Clear on auscultation bilaterally, no difficulty breathing Abdomen: Soft, nontender. Bowel sounds present . Vascular: Peripheral pulses palpable Neuro: No focal neurological deficits noted. Noted some tremor on the right hand, patient is able to lift his left hand and wiggle his fingers. Objective Labs 10/11/24 09:39 10/11/24 09:39 Quality Measures Quality Measures none Assessment & Plan Assessment Current Active Medications: Generic Name Dose Route Start Last Admin Trade Name Freq PRN Reason Stop Dose Admin Hydrocodone Bitart/Acetaminophen 1 tab 10/10/24 21:13 10/11/24 10:16 Hydrocodone/Apap 5/325 Tablet PO 10/15/24 21:12 1 tab Q6HR PRN Administration PAIN Meclizine HCl 25 mg 10/11/24 00:31 Meclizine Hcl 25 Mg Tablet PO 11/09/24 21:40 QDAY PRN DIZZINESS Phenytoin 100 mg 10/10/24 21:45 10/12/24 09:39 Phenytoin 100 Mg Capsr PO 11/09/24 21:44 100 mg BID RAD Administration Pravastatin Sodium 40 mg 10/11/24 21:00 10/11/24 20:30 Pravastatin Sodium 10 Mg Tablet PO 11/10/24 20:59 40 mg HS RAD Administration Plan 53-year-old male with past medical history of traumatic brain injury status post cranioplasty, history of seizures, hypercholesterolemia, was admitted due to left wrist fracture status post mechanical fall, needed surgical evaluation, status post ORIF postop day 1. Hospitalist team was consulted for chronic condition management and medication reconciliation. #Left wrist fracture status post ORIF Status post ORIF postop day 1 - Pain management as needed - Ortho is on board recommendations appreciated - PT eval is ordered #Traumatic brain injury - Status post cranioplasty #History of seizure - Reconcile home phenytoin #History of hypercholesterolemia - Reconcile home statin Disposition: Medsurge DVT prophylaxis: SCDs GI prophylaxis: Not indicated Diet: Clear liquid Lines: PIV CODE STATUS: Full code Thank you very much, Dr. Meier for consulting internal medicine team. We are delighted to be a part of [[facility]] [facility]. Assessment and plan discussed with my attending physician Dr. Calista Perez (PGY-1)- Internal medicine resident Attending Provider Attestation/Addendum I reviewed labs, imaging, EKG, home medications and prior available records. Face to face evaluation was performed by me. I have personally examined the patient and discussed assessment and plan with the IM team. I reviewed the resident note and agree with the plan with exceptions as below. Left wrist fracture status post ORIF History of TBI status post craniotomy Seizure disorder Hyperlipidemia Continue current pain management PT evaluation Continue home phenytoin Seizure precautions
--- NOTE | 2024-10-12 15:26 | PC.SS ---
SS completed PASRR and provided these to [facility] and [facility] SS uploaded packet via [facility] SS met with pt at bedside using all precautions; discussed SNF placement; pt preference is be here in [place] with [facility] being first choice then [facility]
[2024-10-12 16:00] VITALS: BP 116/77; PULSE 101; RESP 19; TEMP 37.2; O2SAT 92
[2024-10-12 20:00] VITALS: BP 111/79; PULSE 103; RESP 18; TEMP 36.4; O2SAT 95
[2024-10-12] MEDS: PRAVASTATIN SODIUM 10 MG TABLET 40 MG PO (20:59)
[2024-10-13] VITALS: BP 114/80; PULSE 85; RESP 18; TEMP 36.8; O2SAT 94
[2024-10-13 04:00] VITALS: BP 117/84; PULSE 90; RESP 18; TEMP 36.9; O2SAT 93
[2024-10-13 08:00] VITALS: BP 114/79; PULSE 91; RESP 17; TEMP 36.8; O2SAT 95
[2024-10-13] MEDS: PHENYTOIN 100 MG CAPSR PO ×2 (09:09→20:47)
--- NOTE | 2024-10-13 09:38 | PD.RESPRO ---
Documentation for date of: 10/13/24 Subjective Subjective Interval history: 10/12: No acute overnight evens. Pt is seen and examined at bedside, no surgical complications. pt stats he has mild pain and discomfort in this wrist and he using the piano fingers motion to help with it. He would like to watch TV but it appears the TV in his room doesnt work. Pt has no complaints at this time. Hospitalist team will sign off at this time. Exam Vital Signs Temp Pulse Resp BP Pulse Ox O2 Del Method O2 Flow Rate 98.2 F 91 17 114/79 95 Room Air 4 10/13/24 08:00 10/13/24 08:00 10/13/24 08:00 10/13/24 08:00 10/13/24 08:00 10/13/24 08:00 10/10/24 17:45 Narrative Exam General: AOx3, cooperative. Seizure precautions in place, noted surgical dressing on left upper extremity and sling across her collar. Skin: Intact, no cyanosis or edema noted. Scar on the forehead. HEENT: Atraumatic/normocephalic, JOHN, neck supple Heart: RRR, S1 and S2 without clicks or murmurs Lungs: Clear on auscultation bilaterally, no difficulty breathing Abdomen: Soft, nontender. Bowel sounds present . Vascular: Peripheral pulses palpable Neuro: No focal neurological deficits noted. Noted some tremor on the right hand, patient is able to lift his left hand and wiggle his fingers. Objective Labs 10/11/24 09:39 10/11/24 09:39 Quality Measures Quality Measures none Assessment & Plan Assessment Current Active Medications: Generic Name Dose Route Start Last Admin Trade Name Freq PRN Reason Stop Dose Admin Hydrocodone Bitart/Acetaminophen 1 tab 10/10/24 21:13 10/11/24 10:16 Hydrocodone/Apap 5/325 Tablet PO 10/15/24 21:12 1 tab Q6HR PRN Administration PAIN Meclizine HCl 25 mg 10/11/24 00:31 Meclizine Hcl 25 Mg Tablet PO 11/09/24 21:40 QDAY PRN DIZZINESS Phenytoin 100 mg 10/10/24 21:45 10/13/24 09:09 Phenytoin 100 Mg Capsr PO 11/09/24 21:44 100 mg BID RAD Administration Pravastatin Sodium 40 mg 10/11/24 21:00 10/12/24 20:59 Pravastatin Sodium 10 Mg Tablet PO 11/10/24 20:59 40 mg HS RAD Administration Plan 53-year-old male with past medical history of traumatic brain injury status post cranioplasty, history of seizures, hypercholesterolemia, was admitted due to left wrist fracture status post mechanical fall, needed surgical evaluation, status post ORIF postop day 1. Hospitalist team was consulted for chronic condition management and medication reconciliation. #Left wrist fracture status post ORIF Status post ORIF postop day 3 - Pain management as needed - Ortho is on board recommendations appreciated - PT eval is ordered #Traumatic brain injury - Status post cranioplasty #History of seizure - Reconcile home phenytoin #History of hypercholesterolemia - Reconcile home statin Disposition: Medsurge DVT prophylaxis: SCDs GI prophylaxis: Not indicated Diet: Clear liquid Lines: PIV CODE STATUS: Full code Thank you very much, Dr. Meier for consulting internal medicine team. We are delighted to be a part of [[facility]] [facility]. Assessment and plan discussed with my senior year resident physician Dr. Ghosh and my attending physician Dr. Calista Perez (PGY-1)- Internal medicine resident Attending Provider Attestation/Addendum I reviewed labs, imaging, EKG, home medications and prior available records. Face to face evaluation was performed by me. I have personally examined the patient and discussed assessment and plan with the IM team. I reviewed the resident note and agree with the plan with exceptions as below. Left wrist fracture status post ORIF History of TBI status post craniotomy Seizure disorder Hyperlipidemia Continue current pain management PT evaluation: Recommended SNF Continue home phenytoin Seizure precautions
--- NOTE | 2024-10-13 09:51 | PC.SS ---
Addendum entered by Yanely Llanes 10/13/24 12:47: SS spoke to Concepcion Figueroa from [facility] by phone who explained SNF inquiry was given to her DON to review and she is aware family is requesting [facility] Original Note: Follow up note: Pt has been accepted to [facility]. SS attempted to contact [facility] but was only able to leave voicemail for Concepcion Patel informing family is requesting their facility. SS followed up with patient's sister, Charisma who is aware and her 2nd choice is [facility] if [facility] does not respond. Charisma is aware patient's health insurance requires authorization.
[2024-10-13 12:00] VITALS: BP 119/77; PULSE 81; RESP 16; TEMP 36.8; O2SAT 96
--- NOTE | 2024-10-13 15:00 | PC.SS ---
SS followed up with Concepcion Patel at [facility] who is requesting to do an onsite tomorrow and is aware pt is ready for dc. SS has informed patient's sister, Charisma and she is now requesting [facility]. SS has spoken to Leonor from [facility] who will review inquiry again and start insurance authorization. Pt has also been accepted to [facility] (Leonor is aware).
[2024-10-13 16:00] VITALS: BP 121/82; PULSE 87; RESP 16; TEMP 36.7; O2SAT 93
[2024-10-13 16:23] VITALS: BMI 29.2
[2024-10-13 20:00] VITALS: BP 117/78; PULSE 81; RESP 17; TEMP 36.6; O2SAT 93
--- NOTE | 2024-10-13 20:25 | ESPR_ITS ---
RE: CICI RATLIFF : 1970 DATE OF SERVICE: 10/11/2024 The patient was seen by me on 10/11/2024 The patient is status post ORIF of the left distal radius. The patient was admitted due to diffuse traumatic brain injury. The patient is being taken care of by his sister. The sister said that she is unable to take care of him and hence he needs to be transferred to a prison. Accordingly, the information systems planner is informed to proceed with the same. DT: 17:28:13 TT: 20:24:00 Ref: [id number] - TID: [id number]
[2024-10-13] MEDS: PRAVASTATIN SODIUM 10 MG TABLET 40 MG PO (20:47)
--- NOTE | 2024-10-13 21:07 | ESPR_ITS ---
RE: CICI RATLIFF : 1970 DATE OF SERVICE: 10/13/2024 The patient was seen by me again on 10/13/2024. The patient is doing fine. However, the patient is waiting for the placement to a fpc as he has a diffuse traumatic brain injury and the patient's sister is unable to take care of him. So presently, the patient is awaiting for acceptance in the long-term facility. DT: 17:29:00 TT: 21:06:00 Ref: [id number] - TID: [id number]
[2024-10-14] VITALS: BP 112/81; PULSE 88; RESP 17; TEMP 36.8; O2SAT 95
[2024-10-14 04:00] VITALS: BP 116/80; PULSE 79; RESP 17; TEMP 36.8; O2SAT 95
[2024-10-14 08:00] VITALS: BP 109/74; PULSE 74; RESP 18; TEMP 36.3; O2SAT 92
[2024-10-14] MEDS: PHENYTOIN 100 MG CAPSR PO ×2 (08:44→20:32)
[2024-10-14 12:00] VITALS: BP 112/76; PULSE 88; RESP 18; TEMP 36.5; O2SAT 97
--- NOTE | 2024-10-14 12:07 | PC.SS ---
SS followed up with Leonor at [facility] and insurance authorization is still pending.
--- NOTE | 2024-10-14 15:28 | CONPN_ITS ---
Documentation for date of: 10/14/24 Subjective - Hospitalist Subjective Interval history: Patient was seen and examined at the bedside. 24-hour events, labs, imaging studies, and reports reviewed in details. Patient is still pending SNF. outside maintenance worker is working on the case Patient denies new complaints. He was brushing his teeth. He mentioned that his pain is well-managed. He is wondering when he will be discharged. No reported nausea or vomiting. Review of Systems Review of Systems Narrative Review of Systems: Review of systems: 12 point of system reviewed. All negative except as mentioned above. Exam Vital Signs Temp Pulse Resp BP Pulse Ox O2 Del Method O2 Flow Rate 97.7 F 88 18 112/76 97 Room Air 4 10/14/24 12:00 10/14/24 12:00 10/14/24 12:10/14/24 12:10/14/24 12:10/14/24 12:00 10/10/24 17:45 Narrative General: AOx3, cooperative. Seizure precautions in place, noted surgical dressing on left upper extremity and sling across her collar. Skin: Intact, no cyanosis or edema noted. Scar on the forehead. HEENT: Atraumatic/normocephalic, JOHN, neck supple Heart: RRR, S1 and S2 without clicks or murmurs Lungs: Clear on auscultation bilaterally, no difficulty breathing Abdomen: Soft, nontender. Bowel sounds present . Vascular: Peripheral pulses palpable Neuro: No focal neurological deficits noted. Noted some tremor on the right hand, patient is able to lift his left hand and wiggle his fingers. Extremities: No evidence of compartment syndrome on the left upper extremity Objective - Hospitalist Labs Diagram: 10/11/24 09:39 10/11/24 09:39 Assessment & Plan Patient Synopsis 53-year-old male with past medical history of traumatic brain injury status post cranioplasty, history of seizures, hypercholesterolemia, was admitted due to left wrist fracture status post mechanical fall, needed surgical evaluation, status post ORIF. Hospitalist team was consulted for chronic condition management and medication reconciliation. #Left wrist fracture status post ORIF Status post ORIF No evidence of compartment syndrome - Pain management as needed - Ortho is on board recommendations appreciated. Okay to discharge from their standpoint however pending placement. Outpatient follow-up with orthopedic surgery - PT eval is ordered: Recommended SNF. Discussed with adoption social worker who is working on the case # Leukocytosis, mild Likely reactive in the setting of postop versus dehydration. Follow-up CBC #Traumatic brain injury - Status post cranioplasty. No new neurologic deficits #History of seizure -Continued home phenytoin. Seizure precautions #History of hypercholesterolemia -Continue home statin Internal medicine team will sign off. Call for any questions Disposition: Medsurg. Pending SNF placement DVT prophylaxis: SCDs GI prophylaxis: Not indicated Diet: Clear liquid Lines: PIV CODE STATUS: Full code Time Spent with Patient Time: Total time spent is greater than 50% in coordination of care (as documented) at patient's floor/unit and/or counseling patient: Time with patient: 25 - 35 minutes Reason for Continued Stay Reason for continued stay: other Quality Measures Quality Measures none
[2024-10-14 16:00] VITALS: BP 122/76; PULSE 75; RESP 18; TEMP 36.7; O2SAT 92
[2024-10-14 20:00] VITALS: BP 108/74; PULSE 75; RESP 18; TEMP 36.8; O2SAT 94
[2024-10-14] MEDS: PRAVASTATIN SODIUM 10 MG TABLET 40 MG PO (20:32)
[2024-10-15] VITALS: BP 113/76; PULSE 67; RESP 17; TEMP 36.6; O2SAT 96
[2024-10-15 04:00] VITALS: BP 116/82; PULSE 68; RESP 18; TEMP 37.3; O2SAT 97
[2024-10-15 08:00] VITALS: BP 105/80; PULSE 79; RESP 18; TEMP 36.4; O2SAT 95
[2024-10-15] MEDS: PHENYTOIN 100 MG CAPSR PO ×2 (09:19→20:29)
--- NOTE | 2024-10-15 11:19 | PC.SS ---
Addendum entered by Yanely Llanes 10/15/24 16:00: SS followed up with Leonor at [facility], she received updated inquiry and insurance authorization is still pending. Original Note: Follow up note: Physician residents Team B have signed off (they were consulting). SS has sent updated inquiry to [facility] for insurance authorization using [facility]. Per Leonor at [facility], she spoke to her insurance document control coordinator and insurance authorization is still pending.
[2024-10-15 12:00] VITALS: BP 109/76; PULSE 81; RESP 17; TEMP 36.1; O2SAT 95
[2024-10-15 16:00] VITALS: BP 99/88; PULSE 78; RESP 17; TEMP 36.7; O2SAT 94
[2024-10-15 20:00] VITALS: BP 116/68; PULSE 93; RESP 18; TEMP 36.7; O2SAT 97
[2024-10-15] MEDS: PRAVASTATIN SODIUM 10 MG TABLET 40 MG PO (20:29)
[2024-10-16] VITALS: BP 112/71; PULSE 73; RESP 16; TEMP 36.4; O2SAT 96
[2024-10-16 04:00] VITALS: BP 129/87; PULSE 76; RESP 19; TEMP 36.3; O2SAT 93
[2024-10-16 07:47] VITALS: BP 129/87; PULSE 76; RESP 18; TEMP 36.1; O2SAT 95
[2024-10-16] MEDS: PHENYTOIN 100 MG CAPSR PO ×2 (08:38→20:31)
[2024-10-16 11:36] VITALS: BP 129/79; PULSE 90; RESP 20; TEMP 36.2; O2SAT 95
--- NOTE | 2024-10-16 13:38 | PC.SS ---
SS utilized LEILANI to send PT notes from 10/13 to [facility] for auth
--- NOTE | 2024-10-16 14:46 | PC.SS ---
Addendum entered by Celine Daily 10/16/24 16:18: SS follow up note; SS was contacted by Leo Goldman in regards to obtaining auth. SS attempted to contact Dr. Lares and left Voicemail with call back number. Original Note: SS follow up note; SS was contacted by Dr. Dobbins in regards to patient's auth. Dr. Dobbins requested for SS to contact him before noon tomorrow to further discuss authorization and if needed for Dr. Dobbins to speak to Insurance. SS will stand by for further needs.
[2024-10-16 16:00] VITALS: BP 112/80; PULSE 80; RESP 18; TEMP 36.2; O2SAT 92
--- NOTE | 2024-10-16 16:26 | PC.NURSE ---
phone call to Celine Lira says she got authorization for SNF and needs an order for discharge
--- NOTE | 2024-10-16 16:31 | PC.NURSE ---
Dr. Read said the hospitalists may agree to put in the discharge order, otherwise it will be tomorrow, spoke with Dr. Mccormack who says Dr. Grigsby signed off pt's case
[2024-10-16 20:00] VITALS: BP 129/77; PULSE 76; RESP 19; TEMP 36.7; O2SAT 95
[2024-10-16] MEDS: PRAVASTATIN SODIUM 10 MG TABLET 40 MG PO (20:31)
[2024-10-17] VITALS: BP 127/84; PULSE 74; RESP 17; TEMP 37; O2SAT 95
[2024-10-17 04:00] VITALS: BP 120/65; PULSE 73; RESP 19; TEMP 36.7; O2SAT 95
[2024-10-17 08:00] VITALS: BP 134/78; PULSE 85; RESP 16; TEMP 36.4; O2SAT 96
[2024-10-17] MEDS: PHENYTOIN 100 MG CAPSR PO (08:41)
--- NOTE | 2024-10-17 09:18 | PC.SS ---
Addendum entered by Yanely Yan Llanes 10/17/24 12:40: PASRR sent through file exchange. Leonor at [facility] is aware. Addendum entered by Yanely Yan Llanes 10/17/24 12:09: SS met with Dr. Read who placed d/c orders. SS spoke to patient's sister, Charisma she will provide transportation to [facility] at 2pm. Pt is aware. Leonor from [facility] is aware. Bedside nurseKaycee is aware. Addendum entered by Yanely Llanes 10/17/24 09:27: SS called and spoke to Dianna from [facility] who states pt does have coverage for transportation. Original Note: SS confirmed with Leonor at [facility] they have insurance authorization and are ready to accept pt. Bedside nurseKaycee is aware. Physician dc orders are pending.
--- NOTE | 2024-10-17 11:00 | CHAP ---
Patient was visited by the Spiritual Care Volunteer who prayed for them. (Volunteer was in the hospital from c 10:00-11:00)
--- NOTE | 2024-10-17 11:30 | PC.NURSE ---
at bedside, completed dressing change. discharge order in,awaiting sister to come and take him to [facility]
[2024-10-17 12:00] VITALS: BP 130/92; PULSE 98; RESP 16; TEMP 36.5; O2SAT 95
--- NOTE | 2024-10-17 14:53 | PC.NURSE ---
report given to zhao from [facility], all questions answered, package sent with sister genny who transported pt to [facility]
--- NOTE | 2024-10-17 18:49 | ESPR_ITS ---
RE: CICI RATLIFF : 1970 DATE OF SERVICE: 10/15/2024 The patient was seen by me again on 10/15/2024. The patient is afebrile and vital signs are stable. The patient is not in too much pain. I talked to the marketing planner and she told me that insurance company is asking for some more documents and they are going to send it today, which is 10/15/2024. We are awaiting for placement of the patient. Meanwhile, we will continue the same treatment. DT: 13:37:47 TT: 18:47:00 Ref: [id number] - TID: [id number]
--- NOTE | 2024-10-17 18:55 | ESPR_ITS ---
RE: CICI RATLIFF : 1970 DATE OF SERVICE: 10/16/2024 The patient was seen by me on 10/16/2024. The patient was afebrile and vital signs are stable. I was told by the resource management planner or the social media strategist that most likely by the end of day, which is 10/16/2024, we will hear something from the insurance company. Later on quite late in the afternoon, I was informed that insurance company has approved and senior living has accepted the patient. However, since it was quite late in the afternoon, therefore, discharge could not be done on 10/16/2024 for the senior living. DT: 13:39:09 TT: 18:54:00 Ref: [id number] - TID: [id number]
--- NOTE | 2024-10-17 19:16 | ESPR_ITS ---
RE: CICI RATLIFF : 1970 DATE OF SERVICE: 10/17/2024 I saw the patient today. Dressing change was done. Wound is looking healthy. The patient is being transferred to [facility]. I put all the discharge order. Once the patient reaches the skilled nursing, the skilled nursing will call my office and will make further appointment. The stay in the hospital was rather uneventful. DT: 13:40:13 TT: 19:14:00 Ref: [id number] - TID: [id number]
== END 2024-10-17 14:45 | disposition skilled nursing facility (03) | DRG 315 ==
LOC: SERX 08:56 → S2EX 13:39 → S3SX 22:47 → S2EX 10-13 06:14 → S3SX 10-13 06:14
PROVIDERS: Nurse Practitioner Primary Care; Admitting Provider Orthopaedic Surgery; Emergency Provider Emergency Medicine; PCP Nurse Practitioner Family; Referring Provider Orthopaedic Surgery; Visit Provider Internal Medicine
PROC: 0PSJ04Z Reposition Left Radius with Internal Fixation Device, Open Approach (ICD-10-PCS; principal; 2024-10-10 10:00)
DX: S52.502A Unspecified fracture of the lower end of left radius, initial encounter for closed fracture (principal); E78.00 Pure hypercholesterolemia, unspecified; W19.XXXA Unspecified fall, initial encounter; Z87.820 Personal history of traumatic brain injury; R56.9 Unspecified convulsions
CPT/HCPCS: 36415; 71045; 73100; 76000; 80053; 80069; 85025; 85610; 85730; 93005; 96374; 96375; 97162; 99285; A4217; A4649; C1713; C1769; J0690; J1100; J1580; J2250; J2270; J2405; J2704; J2710; J2795; J3010; J3490; A9270; J1596